=== PATIENT | male | born 1970 | race Caucasian/White ===

== ENCOUNTER → 2021-06-14 00:32 | Outpatient (CLI) | payer BC, SELFPAY ==
[2021-06-14 17:04] LABS: SARS-CoV-2 RNA PCR Negative
== END ==
PROVIDERS: PCP Internal Medicine; Visit Provider Internal Medicine Gastroenterology
DX: Z01.812 Encounter for preprocedural laboratory examination (principal); Z20.822 Contact with and (suspected) exposure to COVID-19
CPT/HCPCS: C9803; U0003; U0005

== ENCOUNTER 2021-06-17 02:54 | Day surgery (SDC) | payer BC, SELFPAY ==
[2021-05-30 16:20] VITALS: BMI 35.4
[2021-06-17 06:20] VITALS: BP 127/84; PULSE 65; RESP 20; TEMP 35.8; O2SAT 99; BMI 34.4
[2021-06-17] MEDS: LACTATED RINGERS 1,000 ML 150 ML IV CONT (06:31)
--- NOTE | 2021-06-17 06:53 | WPDANESEPPF ---
Anes - Initial Pre Proc Eval Procedure: Operation Date: 06/17/21 07:30 Proposed Procedures p Screening Colonoscopy - Radu Lawson MD Date/Time: 06/17/21 06:53 Surgeon: Radu Lawson MD Pre Op Diagnosis: neoplasm screening Patient Data Age: 51 Gender: M Height: 1.75 m Weight: 106 kg Last Vital Signs Temp 35.8 C L 06/17/21 06:20 Pulse 65 06/17/21 06:20 Resp 20 06/17/21 06:20 BP 127/84 06/17/21 06:20 Pulse Ox 99 06/17/21 06:20 Allergies Allergy/AdvReac Type Severity Reaction Status Date / Time No Known Allergies Allergy Unknown Verified 06/17/21 06:19 Home Medications Medication Instructions Recorded Confirmed Type amlodipine 10 mg tablet See Rx Instructions .ROUTE 07/22/20 05/30/21 Rx .COMPLEX #90 tablet tramadol 50 mg tablet 50 mg PO Q6H PRN #120 tablet 05/13/21 05/30/21 Rx meloxicam 7.5 mg tablet See Rx Instructions .ROUTE 06/06/21 06/17/21 Rx .COMPLEX #90 tablet Patient hx anesthesia problems: none Family hx anesthesia problems: none Results Review: All pre-operative results and documents have been reviewed as part of the pre-operative evaluation. [facility] Past Medical History Medical History (Updated 06/17/21 @ 06:53 by Benny Kuo MD) Chronic pain of both shoulders HTN (hypertension) Obesity (BMI 30.0-34.9) Surgical History Surgical History H/O arthroscopy of left knee H/O hernia repair S/P arthroscopy of left shoulder S/P arthroscopy of right shoulder Family History Family History Mother Cerebrovascular accident Father Myocardial infarction Congestive heart failure Grandparent , Age 96 Cerebrovascular accident Grandparent , Age 85 by being Hit by a Bus No problems noted. Social History Social History Smoking packs per day: 1 Smoking cigarettes per day: 20.0 Years smoked: 25 Smoking pack-years: 25.00 Smoking status: Former smoker Tobacco type: cigarettes Second hand tobacco smoke exposure: No Alcohol intake: never Substance use: never Substance use type: does not use Living arrangements: with family Spiritual care concerns: No Anes - Eval Final PreProcedure Day of Procedure 06/17/21 06:53 Patient weight: obese Heart: regular rate and rhythm Lungs: clear to auscultation Airway: Mallampati scale class II Neurological: alert and oriented Last oral intake: >/= 8 hours ASA classification: II Emergent: no Anesthetic plan: proceed Anesthesia type and monitoring: general GIVS and standard monitoring Results Review: All pre-operative results and documents have been reviewed as part of the pre-operative evaluation. Informed Consent: The patient's anesthetic plan and its attendant risks and benefits were discussed with the patient/family/POA. Questions were solicited and answers provided to the satisfaction of the patient/family/POA.
--- NOTE | 2021-06-17 07:36 | PM.HPGS ---
History of Present Illness History of Present Illness Consent: Risks, benefits, and alternatives have been discussed and questions answered. Patient agrees to proceed with procedure. Chief complaint: neoplasm screening Narrative: Nito Clarke is a 51 year old male here for first screening colonoscopy Review of Systems Constitutional: Constitutional: Denies headache(s) and Denies weakness Eyes: Eyes: Denies blurry vision ENT: Reports Normal hearing present, Denies headache(s) and Denies neck pain Cardiovascular: Cardiovascular: Denies chest pain and Denies dyspnea Respiratory: Respiratory: Denies dyspnea Gastrointestinal: Gastrointestinal: Reports no additional gastrointestinal complaints Genitourinary: Genitourinary: Denies dysuria Musculoskeletal: Musculoskeletal: Denies neck pain Integumentary/Breasts: Skin/Breast: Denies dry skin Neurologic: Reports Normal hearing present, Denies headache(s) and Denies weakness Psychiatric: Psychiatric: Denies anxiety Endocrine: Endocrine: Denies change in body appearance Hematologic/Lymphatic: Hematologic/Lymphatic: Denies easy bleeding Allergic/Immunologic: Allergic/Immunologic: Denies urticaria [facility] Past Medical History Medical History (Updated 06/17/21 @ 07:36 by Radu Lawson MD) Chronic pain of both shoulders Colon cancer screening HTN (hypertension) Obesity (BMI 30.0-34.9) Surgical History Surgical History H/O arthroscopy of left knee H/O hernia repair S/P arthroscopy of left shoulder S/P arthroscopy of right shoulder Family History Family History Mother Cerebrovascular accident Father Myocardial infarction Congestive heart failure Grandparent , Age 96 Cerebrovascular accident Grandparent , Age 85 by being Hit by a Bus No problems noted. Social History Social History Smoking packs per day: 1 Smoking cigarettes per day: 20.0 Years smoked: 25 Smoking pack-years: 25.00 Smoking status: Former smoker Tobacco type: cigarettes Second hand tobacco smoke exposure: No Alcohol intake: never Substance use: never Substance use type: does not use Living arrangements: with family Spiritual care concerns: No Meds Home Medications and Allergies Home Medications Medication Instructions Recorded Confirmed Type amlodipine 10 mg tablet See Rx Instructions .ROUTE 11/23/20 10/01/21 Rx .COMPLEX #90 tablet tramadol 50 mg tablet 50 mg PO Q6H PRN #120 tablet 05/13/21 05/30/21 Rx meloxicam 7.5 mg tablet See Rx Instructions .ROUTE 06/06/21 06/17/21 Rx .COMPLEX #90 tablet Allergies Allergy/AdvReac Type Severity Reaction Status Date / Time No Known Allergies Allergy Unknown Verified 06/17/21 06:19 Vital Signs Vital Signs - 24 hr 06/17/21 06:20 Temperature 96.4 F L Pulse Rate 65 Respiratory Rate 20 Blood Pressure 127/84 Pulse Oximetry 99 Exam Const: General: comfortable and no acute distress HENMT: General nose exam: Normal nares present Eyes: General: appearance normal, both eyes and all related structures Neck: Neck: no JVD Resp: Auscultation: clear to auscultation bilaterally Cardio: Rate: regular rate Rhythm: regular rhythm GI: Inspection: non-distended GI Palp: Yes Soft to palpation Skin: General skin exam: normal color Neuro: General: gait normal Speech: normal speech Extrem: General: normal to inspection Psych: Mental Status: mental status grossly normal Assessment and Plan Assessment and plan (1) Colon cancer screening: Code(s): Z12.11 - Encounter for screening for malignant neoplasm of colon Status: Acute Assessment and Plan: colonoscopy
[2021-06-17 07:50] VITALS: BP 99/67; PULSE 63; RESP 19; O2SAT 99
[2021-06-17 08:00] VITALS: BP 107/70; PULSE 64; RESP 25; O2SAT 100
[2021-06-17 08:10] VITALS: BP 113/76; PULSE 55; RESP 13; O2SAT 100
== END 2021-06-17 08:20 | disposition home or self-care (01) ==
PROVIDERS: PCP Internal Medicine; Visit Provider Internal Medicine Gastroenterology
PROC: 0DJD8ZZ Inspection of Lower Intestinal Tract, Via Natural or Artificial Opening Endoscopic (ICD-10-PCS; CPT 45378; principal; 2021-06-17 07:30)
DX: Z12.11 Encounter for screening for malignant neoplasm of colon (principal); I10 Essential (primary) hypertension; M25.512 Pain in left shoulder; M25.511 Pain in right shoulder; G89.29 Other chronic pain; Z87.891 Personal history of nicotine dependence; K64.8 Other hemorrhoids
CPT/HCPCS: 45378; J2704; J7120

== ENCOUNTER 2022-05-07 09:03 | Outpatient (CLI) | payer BC, SELFPAY ==
--- NOTE | ~2022-05-07 | MR_ITS ---
EXAMINATION: MR brain/brain stem wo/w con DATE: 05/07/2022 10:18 INDICATION: Tinnitus. Vertigo. TECHNIQUE: Magnetic resonance imaging (MRI) of the brain and brainstem was performed without and with 20 mL MultiHance intravenous contrast. COMPARISON: None. FINDINGS: There are scattered areas of nonspecific increased T2-weighted signal intensity in the cere bral white matter, which is within normal limits for the patient's age. There is no intracranial hemo rrhage, acute infarction, or abnormal intracranial mass lesion. The ventricles are normal in size. Th e paranasal sinuses are clear. The internal auditory canals and inner and middle ears are normal. The mastoid air cells are normal. The orbits are normal. IMPRESSION: 1. Normal aging brain. Reviewed, dictated and finalized at location A. IMPRESSION: 1. Normal aging brain.
--- NOTE | ~2022-05-07 | MR_ITS ---
EXAMINATION: MRA brain wo con DATE: 05/07/2022 10:17 INDICATION: Tinnitus. Vertigo. TECHNIQUE: Magnetic resonance angiography (MRA) of the brain was performed without intravenous contra st with T1-weighted SPGR by the 3D foyl-iw-vlipka technique. Maximum intensity projection 3D-reconstr uctions were obtained. COMPARISON: None. FINDINGS: There is no significant stenosis of basilar artery or the posterior cerebral arteries. There is no si gnificant stenosis of the intracranial internal carotid arteries or anterior or middle cerebral arter ies. Anterior communicating artery is normal. Posterior communicating arteries are not identified. Th ere is no aneurysm. IMPRESSION: 1. Normal head MRA. Reviewed, dictated and finalized at location A. IMPRESSION: 1. Normal head MRA.
== END 2022-05-07 09:04 | disposition home or self-care (01) ==
PROVIDERS: PCP Family Medicine; Visit Provider Student in an Organized Health Care Education/Training Program
DX: H93.13 Tinnitus, bilateral (principal)
CPT/HCPCS: 70544; 70553; A9577

== ENCOUNTER 2023-07-31 08:52 | Outpatient (CLI) | payer BC, SELFPAY ==
[2023-08-04 13:59] LABS: Testosterone Total 371 ng/dL (250-1100)
== END 2023-07-31 08:53 | disposition home or self-care (01) ==
LOC: ANHLAB 08:54
PROVIDERS: PCP Family Medicine; Visit Provider Family Medicine
DX: E29.1 Testicular hypofunction (principal)
CPT/HCPCS: 36415; 84403

== ENCOUNTER 2023-08-16 08:26 | Outpatient (CLI) | payer BC, SELFPAY ==
--- NOTE | 2023-09-01 11:33 | WPDHOMESLEEP ---
Sleep Study - Home Unattended Date of Study: 08/16/23 Ordering Provider: Sandro Rosenthal MD Interpreting Provider: Yusra Brooks MD Home Sleep Study Type: Watch PAT Height: 1.75 m Weight: 115.666 kg Body Mass Index: 37.6 Neck Circumference (inches): 18 [place]: 10 Reason for Sleep Study loud snoring Sleep History Nito Alvarez is a 53-year-old man with loud snoring according to his . There is a family history of sleep issues. His father has sleep apnea. He has a medical comorbidity of hypertension. He occasionally awakens from sleep feeling short of breath. He occasionally wakes at night with heartburn, belching or coughing.??He frequently snores, frequently snores loudly enough that others complain. He occasionally has trouble sleeping when he has a cold. He occasionally wakes up gasping for breath during the night. He occasionally has breathing problems at night. He occasionally sweats excessively at night. He never notices his heart pounding or beating irregularly during the night. He occasional falls asleep during the day. He never falls asleep involuntarily, never falls asleep while driving. He never experiences loss of muscle tone with strong emotion. He never has daytime difficulty at work due to excessive sleepiness. He never feels paralyzed on waking or falling asleep. He occasionally experiences vivid dreams upon waking or falling asleep. He never feels afraid of going to sleep. He never has nightmares. He frequently recalls his dreams. He occasionally has thoughts racing through his mind. He occasionally feels sad or depressed. He occasionally feels anxiety. He occasionally notices parts of his body jerk. He frequently kicks during the night. He occasionally feels crawling or aching feelings in his legs. He never feels leg pain at night. He occasionally has morning jaw pain, constantly grinds his teeth at night. He rarely feels bothered by pain during the day, occasionally awakened by pain during the night. He occasionally wakes up feeling stiff in the morning, and he rarely wakes feeling sore or achy. He occasionally awakens with pain in his neck, spine, or joints. He has memory problems, headaches and he takes antacids regularly. He reports a 20 lb weight gain in the last year. 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 He is on prescription testosterone. Normal bedtime is 8:30 p.m. or 11:00 p.m., falling asleep within 10 minutes. He wakes 3-4 times during the night, goes to the bathroom and is able to return to sleep within 5 minutes. He typically gets 6-1/2 or 7 hours of sleep per night. His wake up time is 4:00 a.m. or 8:00 a.m.. He takes naps in the day, and may feel refreshed after a 10-15 minute nap. Habits:??Tobacco: Quit 12 years ago Caffeine: large amounts Alcohol:none Recreational substances: none [facility] Past Medical History Medical History Chronic pain of both shoulders Colon cancer screening HTN (hypertension) Obesity (BMI 30.0-34.9) Surgical History Surgical History H/O arthroscopy of left knee H/O hernia repair S/P arthroscopy of left shoulder S/P arthroscopy of right shoulder Family History Family History Mother Cerebrovascular accident Cancer Heart disease Thyroid disorder Father Myocardial infarction Congestive heart failure Alcoholism Hypertension Heart disease Grandparent , Age 96 Cerebrovascular accident Cancer Grandparent , Age 85 by being Hit by a Bus Cerebrovascular accident Social History Social History (Updated 09/01/23 @ 11:47 by Yusra Brooks MD) Social History: Caffeine-daily Smoking packs per day: 1 Smoking cigarettes per day: 20.0 Years smoked: 25 Smoking pack-years: 25
[2023-09-01 12:05] VITALS: BMI 37.6
== END 2023-08-17 08:00 | disposition home or self-care (01) ==
LOC: ANHCSM 08:27
PROVIDERS: PCP Family Medicine; Visit Provider Emergency Medicine
DX: G47.30 Sleep apnea, unspecified (principal); G47.10 Hypersomnia, unspecified; G47.33 Obstructive sleep apnea (adult) (pediatric); G47.61 Periodic limb movement disorder
CPT/HCPCS: 95800

== ENCOUNTER 2023-11-02 08:22 | Outpatient (CLI) | payer BC, SELFPAY ==
--- NOTE | 2023-11-19 21:04 | WPDSLEEPSTUD ---
Sleep Study Date of Study: 11/02/23 Ordering Provider: Prateek Mccoy DO Interpreting Physician: Yusra Brooks MD Sleep Study Type: CPAP Titration Height: 1.7 m Weight: 115.212 kg Body Mass Index: 39.7 Neck Circumference (inches): 18 [place]: 8 Reason for Sleep Study Known obstructive sleep apnea; only comfortable sleeping prone, otherwise he feels sick to his stomach * 08/16/2023 home sleep test using WatchPat; mild obstructive sleep apnea,, AHI 6.8, manoj 85% and moderate snoring. Has frequent kicking during the night, occasionally feels crawling or aching feelings in his legs, constantly grinds his teeth at?night.?? Sleep History Nito Alvarez is a 53-year-old man with loud snoring according to his . There is a family history of sleep issues. His father has sleep apnea. He has a medical comorbidity of hypertension. He occasionally awakens from sleep feeling short of breath. He occasionally wakes at night with heartburn, belching or coughing.??He frequently snores, frequently snores loudly enough that others complain. He occasionally has trouble sleeping when he has a cold. He occasionally wakes up gasping for breath during the night. He occasionally has breathing problems at night. He occasionally sweats excessively at night. He never notices his heart pounding or beating irregularly during the night. He occasional falls asleep during the day. He never falls asleep involuntarily, never falls asleep while driving. He never experiences loss of muscle tone with strong emotion. He never has daytime difficulty at work due to excessive sleepiness. He never feels paralyzed on waking or falling asleep. He occasionally experiences vivid dreams upon waking or falling asleep. He never feels afraid of going to sleep. He never has nightmares. He frequently recalls his dreams. He occasionally has thoughts racing through his mind. He occasionally feels sad or depressed. He occasionally feels anxiety. He occasionally notices parts of his body jerk. He frequently kicks during the night. He occasionally feels crawling or aching feelings in his legs. He never feels leg pain at night. He occasionally has morning jaw pain, constantly grinds his teeth at night. He rarely feels bothered by pain during the day, occasionally awakened by pain during the night. He occasionally wakes up feeling stiff in the morning, and he rarely wakes feeling sore or achy. He occasionally awakens with pain in his neck, spine, or joints. He has memory problems, headaches and he takes antacids regularly. He reports a 20 lb weight gain in the last year. 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 He is on prescription testosterone. Normal bedtime is 8:30 p.m. or 11:00 p.m., falling asleep within 10 minutes. He wakes 3-4 times during the night, goes to the bathroom and is able to return to sleep within 5 minutes. He typically gets 6-1/2 or 7 hours of sleep per night. His wake up time is 4:00 a.m. or 8:00 a.m.. He takes naps in the day, and may feel refreshed after a 10-15 minute nap. Habits:??Tobacco: Quit 12 years ago Caffeine: large amounts Alcohol:none Recreational substances: none [facility] Past Medical History Medical History Chronic pain of both shoulders Colon cancer screening HTN (hypertension) Obesity (BMI 30.0-34.9) Obstructive sleep apnea Surgical History Surgical History H/O arthroscopy of left knee H/O hernia repair S/P arthroscopy of left shoulder S/P arthroscopy of right shoulder Family History Family History Mother Cerebrovascular accident Cancer Heart disease Thyroid disorder Father Myocardial infarction Congestive heart failure Alcoholism Hypertension Heart disease Grandparent , Age 96 C
[2023-11-19 21:05] VITALS: BMI 39.7
== END 2023-11-03 04:28 | disposition home or self-care (01) ==
LOC: ANHCSM 08:23
PROVIDERS: PCP Family Medicine; Visit Provider Family Medicine
DX: G47.33 Obstructive sleep apnea (adult) (pediatric) (principal)
CPT/HCPCS: 95811

== ENCOUNTER 2024-01-13 13:30 | Outpatient (CLI) | payer BC, SELFPAY ==
--- NOTE | ~2024-01-13 | XR_ITS ---
EXAMINATION: XR lumbar spine min 4V DATE: 01/13/2024 13:46 INDICATION: Dorsalgia, unspecified. TECHNIQUE: 5 views of lumbar spine were obtained. COMPARISON: None. FINDINGS: There is 3 mm anterolisthesis of L4 on L5. Vertebral body heights are normal. There is mild ly decreased disc height at L2-L3 and L3-L4. There is multilevel facet joint osteoarthritis, severe i n lower lumbar spine. IMPRESSION: 1. Mild lumbar spondylosis. Reviewed, dictated and finalized at location E. IMPRESSION: 1. Mild lumbar spondylosis.
== END 2024-01-13 13:31 ==
PROVIDERS: PCP Family Medicine; Visit Provider Family Medicine
DX: M47.896 Other spondylosis, lumbar region (principal)
CPT/HCPCS: 72110

== ENCOUNTER 2024-08-25 15:51 | Outpatient (CLI) | payer BC, SELFPAY ==
--- NOTE | ~2024-08-25 | XR_ITS ---
3 VIEWS LUMBAR SPINE Ordering provider: Prateek Mccoy DO History: . M54.50 - Low back pain, unspecified . Comparison: None. FINDINGS: VERTEBRAL BODIES: No visible fracture or subluxation. DISK SPACES: Narrowing of the disc T12-L1 and L3-L4. Facet joint disease at the level of C4-5 and L5- S1. SOFT TISSUES: Normal. IMPRESSION: No acute osseous abnormality lumbar spine. Degenerative disc disease at the level of L3-4 Reviewed, dictated and finalized at location A. GER FLOAT
== END 2024-08-25 15:52 | disposition home or self-care (01) ==
LOC: GOSHIMG 15:52
PROVIDERS: PCP Family Medicine; Visit Provider Family Medicine
DX: M51.369 Other intervertebral disc degeneration, lumbar region without mention of lumbar back pain or lower extremity pain (principal)
CPT/HCPCS: 72110

== ENCOUNTER 2025-05-24 15:48 | Outpatient (CLI) | payer BC, SELFPAY ==
--- NOTE | ~2025-05-24 | XR_ITS ---
XR hand BI arthritis min 3V 05/24/2025 16:11 Indication: Marce's nodes with arthropathy. Left hand pain for 2 months. Procedure: 4 views each hand Comparison: No prior studies for comparison. Findings: Right hand: There is mild-moderate osteoarthritis right first MCP and IP joints. There is an age-indeterminate volar avulsion fracture proximal aspect of the fifth middle phalanx. Osteopenia. Left hand: There is residual screw fragments in the fifth middle phalanx proximally. There is mild osteoarthritis of the first MCP and IP joints. No fracture or traumatic malalignment. Impression: 1: Age-indeterminate volar avulsion fracture proximal aspect of the fifth middle phalanx. 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 Reviewed, dictated and finalized at location O. Impression: 1: Age-indeterminate volar avulsion fracture proximal aspect of the fifth middl e phalanx. 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
== END 2025-05-24 15:49 | disposition home or self-care (01) ==
LOC: GOSHIMG 15:50
PROVIDERS: PCP Internal Medicine; Visit Provider Internal Medicine
DX: M15.2 Bouchard's nodes (with arthropathy) (principal)
CPT/HCPCS: 73130

== ENCOUNTER 2025-06-28 15:27 | Outpatient (CLI) | payer BC, SELFPAY ==
--- NOTE | ~2025-06-28 | US_ITS ---
EXAMINATION: US soft tissue upper back, 06/28/2025 15:35 CDT HISTORY: eval bck mass for lipoma vs bursitis Comparison: None Technique: Thomas-scale sonographic images were obtained Findings: Correlating with the palpable area there is a solid subcutaneous focus measuring 2.8 x 1.6 x 4.5 cm without abnormal flow IMPRESSION: Probable lipoma. If there is pain in this location correlation with CT or MRI recommended Reviewed, dictated and finalized at location P.
== END 2025-06-28 15:28 | disposition home or self-care (01) ==
LOC: MICIMG 15:28
PROVIDERS: PCP Internal Medicine; Visit Provider Plastic Surgery
DX: R22.2 Localized swelling, mass and lump, trunk (principal)
CPT/HCPCS: 76604

== ENCOUNTER 2025-08-17 07:11 | Emergency (ER) | payer BC, SELFPAY ==
--- OUTSIDE RECORDS SUMMARY | 2024-11-01 11:30 | XMS_ITS ---
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 WELDER METAL FAB Allergies. 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
[2025-08-17] VITALS (12 sets, daily range): BP systolic 123–188; BP diastolic 79–119; PULSE 68–90; RESP 12–21; TEMP 36.5; O2SAT 96–100
--- NOTE | ~2025-08-17 | XR_ITS ---
EXAMINATION: XR chest 2V, 08/17/2025 8:07 [employer] FIELD AGENT HISTORY: CP, SOB COMPARISON: No comparisons available. Technique: 2 views obtained. Findings: The lungs are clear, no effusion. No pneumothorax. Heart is normal size. Mediastinal and hilar contours are within normal limits. Bony thorax no acute abnormality. Impression: No acute cardiopulmonary abnormality. Reviewed, dictated and finalized at location P. FIELD AGENT Impression: No acute cardiopulmonary abnormality.
--- OUTSIDE RECORDS SUMMARY | 2025-08-17 07:13 | XMS_ITS | Patient Health Record ---
Author Organization [facility] [place] ([address]) Address [address] [place] [address] Care Team Providers Care Trimmer Press Clippings Name Role Phone AnabelCarmencita Unavailable [phone] Reason For Referral No Information Plan Of Treatment No Information Insurance Providers Payer Name Payer Address Payer Phone Subscriber Number Group Number Insured Name Patient Relationship to Insured Coverage Start Date Coverage End Date [facility] [address] [place] [address] [id number] Nito Covington Self - patient is the insured
--- OUTSIDE RECORDS SUMMARY | 2025-08-17 07:13 | XMS_ITS | Clinical Summary ---
Author Organization [facility] Address [address] [place] [address] Care Team Providers Care Academic Guidance Specialist Name Role Phone Diony Hopkins MD Unavailable [phone] Oumar Isaac MD Primary Care Provider [phone] Allergies No known active allergies Medications diclofenac EC 75 MG tablet Take 75 mg by mouth 2 (two) times daily. 1 07/23/2018 Active phentermine 37.5 MG tablet Take 37.5 mg by mouth daily. 0 02/27/2019 Active lisinopril 5 MG tablet Take 1 tablet (5 mg total) by mouth every morning. 90 tablet 1 04/11/2019 Active Active Problems Problem Noted Date Diagnosed Date Essential hypertension Family History Medical History Relation Comments Heart Attack Father Stent Cardiac Father Valve Disease Father Heart Attack Maternal Grandmother Stent Cardiac Maternal Grandmother Heart Attack Mother Open Heart Mother Stroke Mother Stroke Paternal Grandmother Relation Status Comments Father Alive Maternal Grandfather (Age 88) Maternal Grandmother (Age 96) Mother Alive Paternal Grandmother (Age 86) Social History Tobacco Use Types Packs/Day Years Used Date Smoking Tobacco: Former Cigarettes Q uit: 2009 Smokeless Tobacco: Never Alcohol Use Standard Drinks/Week Comments No 0 (1 standard drink = 0.6 oz pur e alcohol) AUDIT-C Answer Date Recorded Frequency of Alcohol Consumption Never 04/11/2019 Average Number of Drinks Not on file 019 Frequency of Binge Drinking Not on file 03/30 Sex and Gender Information Value Date Recorded Sex Assigned at Not on file Legal Sex Male 7:28 PM CDT Gender Identity Not on file Sexual Orientation Not on file 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 Not on file Not on file Not on fi le Last Filed Vital Signs Vital Sign Reading Time Taken Comments Blood Pressure 146/98 04/11/2019 2:37 PM CDT Pulse 78 04/11/2019 2:37 PM CDT Temperature - - Respiratory Rate - - Oxygen Saturation 98% 04/11/2019 2:37 PM CDT Inhaled Oxygen Concentration - - Weight 110.2 kg (243 lb) 04/11/2019 2:37 PM CDT Height 174.6 cm (5' 8.75) 04/11/2019 2:37 PM CD T Body Mass Index 36.15 04/11/2019 2:37 PM CDT Plan of Treatment Health Maintenance Due Date Last Done Comments Colorectal Cancer Screening Colonoscopy (10 Years) 1970 Annual Physical 1973 Hepatitis C 1988 DTaP, Tdap and Td Vaccines ( 1 - Tdap) 1989 Hepatitis B Vaccines (1 of 3 - 19+ 3-dose series) 1989 Pneumococcal Vaccine: 50+ Ye ars (1 of 1 - PCV) 2020 Zoster Vaccines (1 of 2) 2020 COVID-19 Vaccine ( - 2024-2 6 season) 2025 Influenza Adult (#1) 2025 Hepatitis A Vaccines Aged Out No long er eligible based on patient's age to complete this topic Meningococcal B Vaccine Aged Out No l onger eligible based on patient's age to complete this topic Meningococcal Vaccine Aged Out No josselyn trey eligible based on patient's age to complete this topic RSV Immunizations Under 20 Months Aged Out No longer eligible based on patient's age to complete this topic Insurance [facility] Care Teams Academic Guidance Specialist Relationship Specialty Start Date End Date Oumar Isaac MD PCP - General FAMILY PRACTICE 04/11/19 Diony Hopkins MD Dustin Eyeglass Fitter CARDIOVASCULAR DISEASE 03/24/19
--- OUTSIDE RECORDS SUMMARY | 2025-08-17 07:13 | XMS_ITS | Clinical Summary ---
Author Organization [facility] Address [address] [place] [address] Care Team Providers Care Material Flow Analyst Name Role Phone Oumar Isaac MD Unavailable [phone] Napoleon Reynoso MD Primary Care Provider [phone] Allergies No known active allergies Medications lisinopril (PRINIVIL,ZESTRI L) 5 mg tablet TK 1 T PO QAM 1 04/11/2019 Active traMADol (ULTRAM) 50 mg tablet TK 1 T PO QID PRF SEVERE PAIN ONLY 0 02/24/2019 Active meloxicam (MOBIC) 7.5 mg tablet TAKE 1 TABLET BY MOUTH DAILY 30 tablet 2 07/17/2019 Active Active Problems Problem Noted Date Diagnosed Date Calcific tendinitis of right shoulder 04/18/2019 Impingement syndrome of right shoulder 9 History of repair of rotator cuff 04/18/2019 Encounters Date Type Department Care Team Description 08/04/2025 Telephone [facility] Medicine Otolaryngology [address] [place] [address] Shelia Pascual MS from Last 3 Months Surgical History Surgery Date Site/Laterality Comments ROTATOR CUFF REPAIR Bilateral KNEE SURGERY Left ACL recon Medical History Medical History Date Comments Hypertension Family History Medical History Relation Name Comments Diabetes Father Heart disease Father Heart disease Mother Stroke Mother Relation Name Status Comments Father Mother Social History Tobacco Use Types Packs/Day Years Used Date Smoking Tobacco: Former Cigarettes 1.5 25 1 984 - 2008 Alcohol Use Standard Drinks/Week Comments Yes 0 (1 standard drink = 0.6 oz pur e alcohol) Personal Safety Answer Date Recorded Getting School Help Needed Not on file 11/12 Sex and Gender Information Value Date Recorded Sex Assigned at Not on file 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 Gender Identity Not on file Sexual Orientation Not on file 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 Not on file Not on file Not on f ile Last Filed Vital Signs Vital Sign Reading Time Taken Comments Blood Pressure 129/85 06/26/2021 8:00 PM CDT Pulse 67 06/26/2021 8:00 PM CDT Temperature 36.6 C (97.8 F) 06/26/2021 3:25 PM CDT Respiratory Rate 20 06/26/2021 8:00 PM CDT Oxygen Saturation 95% 06/26/2021 8:00 PM CDT Inhaled Oxygen Concentration - - Weight 113.5 kg (250 lb 3.6 oz) 06/26/2021 3:25 PM CDT Height 177 cm (5' 9.69) 06/26/2021 3:25 PM CDT Body Mass Index 36.23 06/26/2021 3:25 PM CDT Plan of Treatment Health Maintenance Due Date Last Done Comments Colon Cancer Screening-Colonoscopy 1970 Depression Screening 1970 Hepatitis C Screening 1970 Prostate Cancer Screening-PSA 1970 DTaP/Tdap/Td Vaccine (1 - Tdap) 1981 Hepatitis B Screening 1988 Regular Well Visit/Exam 18-64 1988 Zoster Vaccine (1 of 2) 2020 Influenza Vaccine (#1) 2025 Pneumococcal vaccine <65 Aged Out No longer eligible based on patient's age to complete this topic Insurance [employer] [place] [employer] [place] Care Teams Material Flow Analyst Relationship Specialty Start Date End Date Napoleon Reynoso MD [address] [place] [address] PCP - General Internal Medicine 06/26/21 Oumar Isaac MD [address] [place] [address] [place] [address] [facility] 04/18/19
--- NOTE | 2025-08-17 07:16 | ECG_ITS ---
Test Date: 2025-08-17 07:19:19 Measurements Intervals [place] Rate: 85 P: 30 W[place]: 159 QRS: 22 QRSD: 95 T: 26 QT: 336 QTc: 401 Interpretive Statements SINUS RHYTHM DELAYED PRECORDIAL R/S TRANSITION BASELINE ARTIFACT- I, II, III, AVR, AVL, AVF, V4-V6 BORDERLINE ECG No previous ECG available for comparison Electronically Signed On 08-17-2025 08:42:52 FOUNDRY ENGINEER by Florencio Diaz D.O.
[2025-08-17 07:31] LABS: Hematocrit 47.5 % (42.0-52.0); Hemoglobin 16.0 g/dL (14.0-18.0); Immature Granulocyte Percent A 0.3 % (0-0.5); Lymphocytes Absolute Auto 2.53 K/mm3 (0.9-3.2); Mean Corpuscular HGB Conc 33.7 g/dl (32-36); Mean Corpuscular Hemoglobin 29.9 pg (26-34); Mean Corpuscular Volume 88.6 fl (80-100); Nucleated Red Blood Cells Absolute Auto 0.000 K/mm3 (0.0-0.012); Nucleated Red Blood Cells Perc 0.0 % (0.0-0.2); Platelet Count Result 373 k/mm3 (150-375); Red Blood Count 5.36 M/mm3 (4.6-6.20); White Blood Count 10.0 K/mm3 (4.5-10.0)
--- OUTSIDE RECORDS SUMMARY | 2025-08-17 07:41 | XMS_ITS | Clinical Summary ---
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
--- OUTSIDE RECORDS SUMMARY | 2025-08-17 07:41 | XMS_ITS | Clinical Summary ---
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
[2025-08-17 07:43] LABS: Alanine Aminotransferase 53 U/L (6-50); Albumin Level 4.9 g/dL (3.5-5.1); Alkaline Phosphatase 48 U/L (38-126); Anion Gap 12 mmol/L (4-12); Aspartate Amino Transferase 36 U/L (17-59); Bilirubin,Total 0.6 mg/dL (0.2-1.3); Blood Urea Nitrogen 12 mg/dL (9-20); Calcium 9.6 mg/dL (8.4-10.2); Carbon Dioxide 25 mmol/L (22-30); Chloride 101 mmol/L (98-107); Estimated CRCL calculation 98 ml/min; Estimated Glomerular Filt Rate > 60; Glucose 95 mg/dL (65-110); Lipase 61 U/L (23-300); Potassium 4.2 mmol/L (3.4-5.0); Sodium 138 mmol/L (137-145); Total Protein 7.8 g/dL (6.3-8.2)
[2025-08-17 07:44] LABS: INR 0.9; Prothrombin Time 12.8 Seconds (11.1-14.7)
[2025-08-17 07:45] LABS: Partial Thromboplastin Time 28.3 Seconds (22.3-36.8)
--- NOTE | 2025-08-17 07:48 | ED.GENADULT ---
HPI - General Adult General Chief complaint: Shortness of Breath/Dyspnea Stated complaint: SOB x 1 week. Chest pain x 1 week Time Seen by Provider: 08/17/25 07:23 History of Present Illness HPI narrative: Patient is a 55-year-old male who presents ER with difficulty sleeping and shortness of breath. Reports he had a tooth extraction and developed sinus congestion other swelling. He has been taken Tylenol Sinus severe regularly. He has started having shortness of breath when he lays down at night and he feels like it is because of congestion. He then becomes anxious and cannot breathe will get tingling in his fingers mouth. His PCP has prescribed him Xanax as well as Ambien and he is still not able to get to sleep. No fevers or chills. Dental issues have resolved. He does have occasional cough. No dyspnea on exertion. Related Data Home Medications ?Medication ?Instructions ?Recorded ?Confirmed ?Last Taken ?Type cetirizine 10 mg tablet (Zyrtec) 10 mg PO DAILY PRN 07/30/25 08/08/25 Unknown History multivitamin (Daily Multi-Vitamin 1 tablet PO DAILY 07/30/25 08/08/25 Unknown History tablet) amoxicillin 500 mg tablet 500 mg PO Q12H 08/08/25 08/08/25 Unknown History Allergies Allergy/AdvReac Type Severity Reaction Status Date / Time alcohol Allergy Severe Redness of Verified 08/17/25 07:18 Skin Review of Systems Review of Systems: All systems reviewed & are unremarkable except as noted in HPI and below Constitutional: Constitutional: Reports no additional constitutional complaints Cardiovascular: Cardiovascular: Reports no additional cardiovascular complaints Respiratory: Respiratory: Reports no additional respiratory complaints Gastrointestinal: Gastrointestinal: Reports no additional gastrointestinal complaints Musculoskeletal: Musculoskeletal: Reports no additional musculoskeletal complaints Psychiatric: Psychiatric: Reports no additional psychiatric complaints [facility] Past Medical History Medical History Allergic reaction to wasp sting Hyperglycemia Long-term current use of testosterone cypionate Obstructive sleep apnea Colon cancer screening HTN (hypertension) Obesity (BMI 30.0-34.9) Chronic pain of both shoulders Surgical History Surgical History H/O arthroscopy of left knee S/P arthroscopy of right shoulder S/P arthroscopy of left shoulder H/O hernia repair Family History Family History Mother Cerebrovascular accident Cancer Heart disease Thyroid disorder Father Myocardial infarction Congestive heart failure Alcoholism Hypertension Heart disease Grandparent , Age 96 Cerebrovascular accident Cancer Grandparent , Age 85 by being Hit by a Bus Cerebrovascular accident Social History Social History Social History: Caffeine-daily Smoking packs per day: 1 Smoking cigarettes per day: 20.0 Years smoked: 25 Smoking pack-years: 25.00 Smoking status: Former smoker Tobacco type: cigarettes Second hand tobacco smoke exposure: No Alcohol intake: never Substance use: former Substance use type: does not use Current Housing: Decline to Answer Concerned About Future Housing: Decline to Answer Difficulty Paying Gas/Electric Bills: Decline to Answer Difficulty Paying for Meds: Decline to Answer Currently Unemployed: Decline to Answer Education: Decline to Answer Difficulty w/ Childcare or Family Care: Decline to Answer Living arrangements: with family Spiritual care concerns: No Agree to blood products: Yes Exam Narrative: GENERAL: Well-appearing, well-nourished, and in no acute distress. HEAD: Normocephalic, atraumatic. EYES: PERRLA and EOMI. ENT: Mucous membranes moist. Normal appearing posterior oropharynx. CHEST: Clear to auscultation. No respiratory distress. HEART: Regular rate and rhythm. Normal peripheral pulses. ABDOMEN: Soft, nontender, nondistended. EXTREMITIES: Normal range of motion. No edema. SKIN: Warm, dry, no rash. NEURO: Alert and oriented x3. PSYCH: Normal mood and affect. Course Course Emergency Course: Patient resting comfortably. Informed of lab and imaging results. He has had a normal evaluation. I think a lot of his difficulty with sleep and breathing is related to the phenylephrine use which she will discontinue. Recommend options of Flonase and Zyrtec to help with congestion. Vital Signs Vital signs: Vital Signs Pulse Rate 80 08/17/25 07:18 Respiratory Rate 20 08/17/25 07:18 Blood Pressure 188/119 H 08/17/25 07:18 Pulse Oximetry 98 08/17/25 07:18 Oxygen Delivery Room Air 08/17/25 07:18 Pulse Rate 79 08/17/25 09:54 Respiratory Rate 17 08/17/25 09:54 Blood Pressure 143/90 H 08/17/25 08:01 Pulse Oximetry 99 08/17/25 09:54 Oxygen Delivery Room Air 08/17/25 07:32 [facility] Differential Diagnosis Differential Diagnosis: ACS, anxiety, medication side effect, congestive heart failure, pneumonia, obstructive sleep apnea Lab Data [facility] Lab Attestation statement: I personally reviewed the patient's lab results. 08/17/25 07:21 08/17/25 07:21 Labs: Lab Results 08/17/25 08/17/25 Range/Units 07:21 10:05 WBC 10.0 (4.5-10.0) K/mm3 RBC 5.36 (4.6-6.20) M/mm3 Hgb 16.0 (14.0-18.0) g/dL Hct 47.5 (42.0-52.0) % MCV 88.6 (80-100) fl MCH 29.9 (26-34) pg MCHC 33.7 (32-36) g/dl RDW 13.6 (11.5-14.5) % Plt Count 373 (150-375) k/mm3 MPV 9.3 (7.4-10.4) fl Immature Gran % (Auto) 0.3 (0-0.5) % Neut % (Auto) 65.0 (45.5-73.1) % Lymph % (Auto) 25.2 (18.3-44.2) % Stanley % (Auto) 7.0 (2.6-8.5) % Eos % (Auto) 1.9 (0-4.4) % Baso % (Auto) 0.6 (0.2-1.2) % Lymph # (Auto) 2.53 (0.9-3.2) K/mm3 Stanley # (Auto) 0.7 H (0.1-0.6) K/mm3 Eos # (Auto) 0.2 (0-0.3) K/mm3 Baso # (Auto) 0.1 (0.0-0.1) K/mm3 Abs Immat Gran (auto) 0.03 (0.00-0.031) K/mm3 Absolute Neuts (auto) 6.5 (1.3-6.7) K/mm3 Absolute Nucleated RBC 0.000 (0.0-0.012) K/mm3 Nucleated RBC % 0.0 (0.0-0.2) % PT 12.8 (11.1-14.7) Seconds INR 0.9 APTT 28.3 (22.3-36.8) Seconds Sodium 138 (137-145) mmol/L Potassium 4.2 (3.4-5.0) mmol/L Chloride 101 (98-107) mmol/L Carbon Dioxide 25 (22-30) mmol/L Anion Gap 12 (4-12) mmol/L BUN 12 (9-20) mg/dL Creatinine 0.86 (0.7-1.3) mg/dL Estim Creat Clear Calc 98 ml/min Estimated GFR > 60 (59 - ) Glucose 95 (65-110) mg/dL Calcium 9.6 (8.4-10.2) mg/dL Total Bilirubin 0.6 (0.2-1.3) mg/dL AST 36 (17-59) U/L ALT 53 H (6-50) U/L Alkaline Phosphatase 48 (38-126) U/L Troponin I < 0.012 < 0.012 (0.000-0.034) ng/mL NT-Pro-B Natriuret Pep < 20 (19.9-100) pg/mL Total Protein 7.8 (6.3-8.2) g/dL Albumin 4.9 (3.5-5.1) g/dL Lipase 61 (23-300) U/L Imaging Data Radiologist's impression: ITS Impressions Chest X-Ray 08/17/25 08:15 Impression: No acute cardiopulmonary abnormality. ECG Data EKG #1: ECG completion date: 08/17/25 ECG completion time: 10:05 normal rate (69), sinus rhythm, no ST changes, normal QRS and NL axis Discharge Plan Discharge Clinical Impression: Insomnia, Dyspnea Patient Disposition: Home Condition: Stable Instructions: Cold Symptoms (ED) Additional Instructions: Discontinue your use of phenylephrine and this will likely help you sleep. If you need a decongestant take Claritin or Zyrtec. You may also use Flonase to help with congestion. Follow-up with primary care doctor for further treatment and evaluation of your symptoms. Patient Language: Pashto Prescriptions: New fluticasone propionate [24 Hour Allergy Relief] 50 mcg/actuation spray,suspension 1 spray intranasal BID Qty: 16 0RF Rx Instructions: administer into each nostril No Action multivitamin [Daily Multi-Vitamin] Tablet 1 tablet PO DAILY cetirizine [Zyrtec] 10 mg tablet 10 mg PO DAILY PRN tramadol 50 mg tablet 50 mg PO QHS PRN (Reason: pain) Qty: 90 0RF testosterone cypionate 200 mg/mL oil 200 mg IM WEEKLY Qty: 10 2RF amoxicillin 500 mg tablet 500 mg PO Q12H Zepbound 2.5 mg/0.5 mL pen injector 2.5 mg subcut WEEKLY Qty: 2 0RF Rx Instructions: for 4 weeks amlodipine 10 mg tablet See Rx Instructions .ROUTE .COMPLEX Qty: 90 1RF Dose Instruction: TAKE 1 TABLET BY MOUTH EVERY DAY Rx Instructions: TAKE 1 TABLET BY MOUTH EVERY DAY diclofenac sodium 75 mg tablet,delayed release (DR/EC) 75 mg PO BID Qty: 60 5RF atorvastatin 20 mg tablet 20 mg PO DAILY Qty: 90 1RF zolpidem [Ambien] 5 mg tablet 5 mg PO QHS PRN (Reason: insomnia) Qty: 10 0RF alprazolam [Xanax] 0.5 mg tablet 0.5 mg PO DAILY PRN (Reason: anxiety) Qty: 7 0RF Rx Instructions: Do not take with Tramadol Follow-up/Referrals: Yordan Soto DO [Primary Care Provider, Internal Medicine] - 1 Week
[2025-08-17 07:55] LABS: Troponin I < 0.012 ng/mL (0.000-0.034)
[2025-08-17 09:57] LABS: NT Pro B Type Natriuretic Pept < 20 pg/mL (19.9-100)
--- NOTE | 2025-08-17 10:01 | ECG_ITS ---
Test Date: 2025-08-17 10:05:10 Measurements Intervals [place] Rate: 69 P: 10 [place]: 173 QRS: 15 QRSD: 105 T: 11 QT: 362 QTc: 390 Interpretive Statements SINUS RHYTHM DELAYED PRECORDIAL R/S TRANSITION CONSIDER INFERIOR INFARCT, AGE INDETERMINATE BASELINE ARTIFACT- V2 ABNORMAL ECG Compared to ECG 08/17/2025 07:19:19 No significant changes Electronically Signed On 08-17-2025 10:27:08 MULTIPLE LAUNCH ROCKET SYSTEM CREWMEMBER by Florencio Diaz D.O.
[2025-08-17 10:54] LABS: Troponin I < 0.012 ng/mL (0.000-0.034)
== END 2025-08-17 11:38 | disposition home or self-care (01) ==
PROVIDERS: Emergency Provider Emergency Medicine; PCP Internal Medicine
DX: R06.00 Dyspnea, unspecified (principal); G47.00 Insomnia, unspecified; R94.31 Abnormal electrocardiogram [ECG] [EKG]; G47.30 Sleep apnea, unspecified; I10 Essential (primary) hypertension
CPT/HCPCS: 36415; 71046; 80053; 83690; 83880; 84484; 85025; 85610; 85730; 93005; 99284